=== PATIENT | female | born 1990 | race Caucasian/White ===

== ENCOUNTER → 2016-06-12 | Outpatient (CLI) | payer OTHER ==
--- NOTE | 2016-06-12 09:40 | US ---
Ultrasound Pelvis Complete (Transabdominal and Endovaginal) History: IUD placed November 2015, abnormal uterine bleeding x1 month. LMP: Constant Technique: Transabdominal and endovaginal ultrasound images were obtained. Endovaginal images obtaine d for better evaluation of the uterine myometrium and adnexa. Duplex doppler is used to evaluate the ovarian bloodflow. Findings: The uterus is anteverted and normal in size. The IUD is in normal position within the upper uterus, however as opposed to the normally deployed left wing, the right wing is caudally angulated and is not within the right uterine horn region. No uterine masses are present. The uterus measures 6.4 x 2.4 x 3.8 cm. The endometrial measures 6.5 mm in thickness. There is no intrauterine fluid. The ovaries are normal in size (each 11 mL), but associated with many small follicles in each. The right ovary measures 2.4 x 1.8 x 4.9 cm. The left ovary measures 2.5 x 1.7 x 4.9 cm. No adnexal masses. N o free fluid is identified in the pelvis. Color and pulsed duplex doppler flow is identified in both ovaries . Right resistive index = 0.5 and left resistive index = 0.6. Impression: 1. The right arm of the IUD is poorly deployed, and could possibly be irritating the endometrial lini ng. 2. Possible evidence for polycystic ovarian disease. Clinical correlation is required. Results called to Dr. Millan at 9:37 am.
== END ==
LOC: BMCIMAGING 08:34
PROVIDERS: ATTEND Family Medicine
DX: N93.9 Abnormal uterine and vaginal bleeding, unspecified (principal); Z30.431 Encounter for routine checking of intrauterine contraceptive device

== ENCOUNTER → 2018-09-13 | Outpatient (CLI) | payer MEDICAID | LOC: FIMAGING 10:54 | PROVIDERS: ATTEND Family Medicine | DX: S83.512A Sprain of anterior cruciate ligament of left knee, initial encounter (principal); S83.422A Sprain of lateral collateral ligament of left knee, initial encounter; M25.462 Effusion, left knee ==

== ENCOUNTER 2018-09-22 09:27 | Day surgery (SDC) | payer MEDICAID ==
--- NOTE | 2018-09-22 06:04 | PDHPUP ---
History & Physical Update H&P update statement: This history and physical update is based on an assessment of the patient which was completed after admission or registration (within 24 hours), but prior to the surgery/procedure. H&P update: no change in patient's condition since H&P completed
[2018-09-22] MEDS ORDERED: LR 1,000 ML IV SCH (10:00)
[2018-09-22] MEDS ORDERED: VANCOMYCIN PHARMACY TO DOSE MISC ONE (10:00)
[2018-09-22] MEDS ORDERED: LR 1,000 ML IV ONE (10:01)
[2018-09-22] MEDS ORDERED: BUPIVACAINE/EPI 0.5% 30 ML SDV ONE (10:55)
[2018-09-22] MEDS ORDERED: EPINEPHrine 30 MG/30 ML MDV (0.1 MG/0.1 ML) ONE (10:56)
[2018-09-22] MEDS ORDERED: VANCOMYCIN HCL/NORMAL SALINE 250 ML IV ONE (11:00)
--- NOTE | 2018-09-22 11:02 | PDANEPAE ---
ANE History of Present Illness L ACL repair, ANE Past Medical History - Cardiovascular History Hx Hypertension: No Hx Arrhythmias: No Hx Chest Pain: No Hx Coronary Artery / Peripheral Vascular Disease: No Hx CHF / Valvular Disease: No Hx Palpitations: No - Pulmonary History Hx COPD: No Hx Asthma/Reactive Airway Disease: No Hx Recent Upper Respiratory Infection: No Hx Oxygen in Use at Home: No Hx Sleep Apnea: No Sleep Apnea Screening Result - Last Documented: Negative - Neurologic History Hx Cerebrovascular Accident: No Hx Seizures: No Hx Dementia: No - Endocrine History Hx Diabetes: No Hypothyroid: No Hyperthyroid: No Obesity: no - Renal History Hx Renal Disorders: No - Liver History Hx Hepatic Disorders: No - Neurological & Psychiatric Hx Hx Neurological and Psychiatric Disorders: Yes Neurological / Psychiatric History Comment: ANXIETY - Cancer History Hx Cancer: No - Congenital Disorder History Hx Congenital Disorders: No - GI History GERD: no Hx Gastrointestinal Disorders: No - Other Health History Other Health History: NONE - Chronic Pain History Chronic Pain: Yes (SHOULDERS) - Surgical History Prior Surgeries: WISDOM TEETH EXTRACTION ANE Review of Systems Review of Systems: - Exercise capacity METS (RN): 6 METS ANE Patient History - Allergies Allergies/Adverse Reactions: amoxicillin Allergy (Verified 09/17/18 12:56) Rash - Home Medications Home Medications: Xanax 09/17/18 [Last Taken 09/21/18] - NPO status NPO Since - Liquids (Date): 09/21/18 NPO Since - Liquids (Time): 20:30 NPO Since - Solids (Date): 09/21/18 NPO Since - Solids (Time): 20:30 - Anes Hx Hx Anesthesia Complications (with details): No prior GA. Hx of seasickness. - Smoking Hx Smoking Status: Never smoked Marijuana use: No - Alcohol Use Alcohol Use: Other (1 drink/day) - Family Anes Hx Family Anes Hx: none Family Hx Anesthesia Complications: NONE ANE Labs/Vital Signs - Vital Signs Blood Pressure: 113/77 Heart Rate: 70 Respiratory Rate: 21 O2 Sat (%): 98 Height: 175.26 cm Weight: 63.503 kg ANE Physical Exam - Airway Neck exam: FROM Mallampati Score: Class 1 Mouth exam: normal dental/mouth exam - Pulmonary Pulmonary: clear to auscultation - Cardiovascular Cardiovascular: regular rate and rhythym - ASA Status ASA Status: II ANE Anesthesia Plan Anesthesia Plan: GA w LMA
[2018-09-22] MEDS ORDERED: MIDAZOLAM 2 MG/2 ML VIAL IVP ONE (11:44)
[2018-09-22] MEDS ORDERED: SCOPOLAMINE HYDROBROMIDE 1 MG/3 DAYS PATCH TD ONE (11:44)
[2018-09-22] MEDS ORDERED: DEXAMETHASONE 4 MG/ML VIAL ONE (12:05)
[2018-09-22] MEDS ORDERED: PROPOFOL 200 MG/20 ML VIAL ONE ×2 (12:05→12:36)
[2018-09-22] MEDS ORDERED: fentaNYL 250 MCG/5 ML INJ ONE (12:05)
[2018-09-22] MEDS ORDERED: ePHEDrine SULFATE 25 MG/5 ML SYR ONE (12:27)
[2018-09-22] MEDS ORDERED: ONDANSETRON 4 MG/2 ML VIAL ONE (13:23)
[2018-09-22] MEDS ORDERED: HYDROmorphONE/DILAUDID 2 MG/ML INJ ONE (13:23)
[2018-09-22] MEDS ORDERED: oxyCODONE IR 5 MG TAB PO PRN ×2 (13:34→13:42)
--- NOTE | 2018-09-22 13:36 | POSTOPPROG ---
Post Op Note Date of Operation: 09/22/18 Surgeon: Shadi Adams Bench Machine Operator: wilson Anesthesiologist: suzie Anesthesia: GET(General Endotracheal) Pre-op Diagnosis: left acl disruption Post-op Diagnosis: same Indication: same4 Procedure: left knee scope acl repair Inf/Abcess present in the surg proc area at time of surgery?: No Depth: Superfical (Skin SQ) EBL: 100-500
[2018-09-22] MEDS ORDERED: HYDROmorphONE/DILAUDID 1 MG/ML INJ IVP PRN (13:42)
[2018-09-22] MEDS ORDERED: fentaNYL 100 MCG/2 ML INJ IVP PRN (13:42)
[2018-09-22] MEDS ORDERED: NALOXONE HCL 0.4 MG/ML INJ IVP PRN (13:42)
[2018-09-22] MEDS ORDERED: PROMETHAZINE HCL 25 MG/ML INJ IVP PRN (13:42)
--- NOTE | 2018-09-22 13:55 | POSTANESTH ---
Post Anesthetic Evaluation Cardiovascular Status: Normal, Stable Respiratory Status: Normal, Stable Level of Consciousness/Mental Status: Can Participate in Eval Pain Control: Adequate, Prn Tx Ordered Nausea/Vomiting Control: Adequate, Prn Tx Ordered Complications Possibly Related to Anesthesia: None Noted
[2018-09-22] MEDS ORDERED: fentaNYL 100 MCG/2 ML INJ ONE (14:29)
[2018-09-22 16:32] VITALS: BP 95/57
--- NOTE | 2018-09-23 06:46 | GOP ---
[f rep st] OPERATIVE REPORT DATE OF OPERATION: 09/22/2018 SURGEON: Shadi Adams MD BUNDLER: Noé Rojas, neurosurgical physician assistant, who was medical necessity for the entirety of the case. PREOPERATIVE DIAGNOSIS: Left knee anterior cruciate ligament disruption. POSTOPERATIVE DIAGNOSIS: 1. Left knee anterior cruciate ligament disruption. 2. Lateral meniscus tear. PROCEDURE PERFORMED: 1. Left knee arthroscopy with anterior cruciate ligament reconstruction with hybrid tendon graft, te ndon graft harvest from a distance. 2. Partial lateral meniscectomy. FINDINGS: INDICATIONS: The patient is a 28-year-old, young woman who sustained a disruption of her ACL. Given her age and functional restrictions I recommended surgical stabilization. I have outlined the surgi mireya procedure, risks, benefits, and alternatives. She wished to proceed. Written consent was signed and placed in patient's chart. DESCRIPTION OF PROCEDURE: The patient was identified in the preanesthesia area. The left knee clear ly demarcated as the operative site with indelible marker. She was given 2 g of Ancef intravenously en route to the operative suite. In the OR, general endotracheal anesthesia was administered. Atten tion was turned to the left knee, which was sterilely prepped and draped in the usual fashion. Appro priate time-out procedure was carried out. The limb was then sterilely prepped and draped in the usu al fashion. A tourniquet was applied and the limb exsanguinated with Esmarch bandage. Standard arth roscopic portal sites created, diagnostic arthroscopy ensued. The intercondylar notch was entered. The ACL was grossly disrupted with separation of the ACL into the medial and lateral compartments. T he suprapatellar pouch was devoid of any loose foreign debris. The articular surface of the patella and trochlea were intact. Medial and lateral gutters were free of any loose foreign debris. The med ial compartment was entered. The articular surface of the femur and tibia were intact, and the media l meniscus was stable and intact to gentle probing throughout. The lateral compartment was entered. There was a tear through the posterior horn which was approximately 20%. This was debrided with art hroscopic shaver to a clean and stable edge. The remaining meniscus was stable and intact. The isamar cular surface of the femur and tibia were intact. The arthroscopic equipment was withdrawn. Attenti on turned to the anterior medial aspect of the knee. A linear incision was made 2 cm in length, ford ied sharply through the skin and subcutaneous tissue, directly to bone. The semitendinosus tendon wa s identified and freed of the surrounding soft tissue, sutured with a loop suture and stripped into t he proximal muscular belly. This was prepared on the back table with a concomitant allograft with luca aring of the remaining soft tissue suture and the proximal distal ends. This was draped over an ACL TightRope button with a moistened gauze under tension. Concomitantly attention was returned to the k nee. The intercondylar notch was cleared of any remnants of the ACL. Minimal additional notchplasty was required. Using an Arthrex guide and inside-out technique with a flip cutter, 9.5 mm tunnel was made over the posterolateral aspect of the femur to a 20 mm depth. A tibial pin was then placed wit h a tibial guide and a 9.5 mm reamer placed. All particulate debris was evacuated free. A retention suture was drawn in an antegrade fashion exiting the tibial tunnel. This was used to draw the ACL Ti ghtRope button through to the posterior lateral wall of the femur. This was flipped on the femoral c ortex and the graft drawn into full position at the femur. Each strand of the graft was placed under tension, secured with an 11 mm x 28 mm BioComposite screw. The knee had been taken through 10 cycle s of motion to eliminate any creep, and a posterior drawer applied during fixation. The excess graft was trimmed flush. The wounds were copiously irrigated and closed in layers using 2-0 Monocryl, 3-0 nylon, a sterile dressing was applied, followed by a postop hinged knee brace. She will follow stand meghan ACL recovery with weightbearing as tolerated with the knee brace locked in extension. Range of m otion as tolerated when nonweightbearing. She is encouraged with ankle calf [id number] and DVT precautions were reviewed and she will follow up in 1 week. /[id number]/MODL
[2018-09-23] MEDS ORDERED: PATCH REMOVAL 1 EA PATCH TD ONE (11:45)
== END 2018-09-22 17:00 | disposition home or self-care (01) ==
LOC: FSGY 09:27
PROVIDERS: ATTEND Orthopaedic Surgery
DX: S83.512A Sprain of anterior cruciate ligament of left knee, initial encounter (principal); S83.282A Other tear of lateral meniscus, current injury, left knee, initial encounter; V00.328D Other snow-ski accident, subsequent encounter
CPT/HCPCS: C1713; C1762; J0171; J1100; J1170; J2250; J2405; J2704; J3010; J3370; L1832